=== PATIENT | female | born 1990 | race Caucasian/White ===

== ENCOUNTER 2018-09-27 05:30 | Inpatient (IN) | payer OTHER, SELFPAY ==
[2018-09-27 06:15] VITALS: BMI 31.3
[2018-09-27] MEDS ORDERED: Promethazine HCl 25 MG/ML VIAL IM PRN ×3 (08:05→14:13)
[2018-09-27] MEDS ORDERED: Carboprost 250 MCG/ML AMP IM PRN (08:05)
[2018-09-27] MEDS ORDERED: Misoprostol 200 MCG TAB PR PRN (08:05)
[2018-09-27] MEDS ORDERED: Methylergonovine 0.2 MG/ML VIAL IM PRN (08:05)
[2018-09-27] MEDS ORDERED: HYDROcodone/Acetaminophen 5/325 mg Tablet PO PRN ×3 (08:05→16:48)
[2018-09-27] MEDS ORDERED: Butorphanol Tartrate 1 MG/ML VIAL SLOW IVP PRN (08:05)
[2018-09-27] MEDS ORDERED: Lidocaine 1% (PF) 30 ML VIAL SC PRN (08:05)
[2018-09-27] MEDS ORDERED: Acetaminophen 500 MG TAB PO PRN (08:05)
[2018-09-27] MEDS ORDERED: Ibuprofen 800 MG TAB PO PRN (08:05)
[2018-09-27] MEDS ORDERED: Ondansetron PF 4 MG/2 ML Vial IVP PRN ×3 (08:05→14:13)
[2018-09-27] MEDS ORDERED: Meperidine HCl/PF 25 MG/ML VIAL IM/IV PRN (08:05)
[2018-09-27] MEDS ORDERED: NS / Oxytocin 40 units/1000ml 1,000 ML IV PRN (08:05)
[2018-09-27] MEDS ORDERED: NS w/ Oxytocin 10 units 500 ML IV SCH (08:15)
[2018-09-27 08:32] LABS: Hemoglobin 11.1 g/dL (12.0-16.0); Mean Corpuscular HGB CONC 33.6 g/dL (32.0-36.0); Mean Corpuscular Volume 77.4 fL (78.0-98.0); Mean Platelet Volume 9.2 fL (7.4-10.4); Platelet Count 139 thou/uL (130-400); RBC Distribution Width 13.3 % (11.5-14.5); Red Blood Cell (RBC) Count 4.28 mill/uL (4.20-5.40); White Blood Cell (WBC) Count 9.6 thou/uL (4.8-10.8)
[2018-09-27 09:01] LABS: HBSAg Index 0.34 S/CO (0-0.99); Hep B Surf Ag Non-Reactive S/CO (NonReactive); Syphilis Antibody Nonreactive (Nonreactive); Syphilis Antibody Index 0.02 S/CO (<1.00 Non-Reactive)
[2018-09-27] MEDS ORDERED: Fentanyl 4 mcg/Bup 0.1% Cadd 100 ML ONE (10:13)
[2018-09-27] MEDS ORDERED: Lactated Ringer's 500 ML IV PRN (10:46)
[2018-09-27] MEDS ORDERED: ePHEDrine/0.9% NaCl/PF SYRINGE 50 mg/10 ml SLOW IVP PRN (10:46)
[2018-09-27] MEDS ORDERED: Naloxone HCl 0.4 mg/ml Vial IVP PRN ×4 (10:46→14:15)
[2018-09-27] MEDS ORDERED: Eucerin (Mineral Oil/Petrolatum,White) 30 gm Jar TOP PRN ×2 (10:46→14:13)
[2018-09-27] MEDS ORDERED: Acetaminophen 325 MG TAB PO PRN (10:46)
[2018-09-27] MEDS ORDERED: diphenhydrAMINE 50 MG/ML VIAL IVP PRN ×2 (10:46→14:13)
[2018-09-27] MEDS ORDERED: Fentanyl 4 mcg/Bupivacaine 0.1% Cassette 100 ML EPIDURAL SCH (11:00)
[2018-09-27] MEDS ORDERED: Communication Order-Pharmacy FS SCH ×2 (11:00→14:15)
[2018-09-27] MEDS ORDERED: Labetalol HCl 100 MG/20 ML VIAL ONE (11:11)
[2018-09-27] MEDS ORDERED: PROPOFOL 200 MG/20 ML VIAL ONE (11:11)
[2018-09-27] MEDS ORDERED: PHENYLEPHRINE-NS 100 MCG/ML 10 ML SYRINGE ONE (11:11)
--- NOTE | 2018-09-27 12:08 | PDOC.EVN ---
Event Note - Event Note Event Note: AROM, clear fluid, 460/-2. FHT reactive. Moderate variability. CTX every 3-4 minutes. Pitocin on 10.
--- NOTE | 2018-09-27 12:10 | PDOC.LDHP ---
Labor and Delivery H&P Chief complaint: scheduled induction HPI: Here for post-dates IOL. No complaints. Some mild contractions this AM. Current gestational age (weeks): 41 Due date: 09/17/18 Dating criteria: last menstrual period Grav: 4 Para: 3 Current complications: none Abnormal US findings: No Current medications: pre- vitamins Previous surgical history: none Allergies/Adverse Reactions: Allergies Allergy/AdvReac Type Severity Reaction Status Date / Time No Known Drug Allergies Allergy Verified 09/27/18 06:11 Social history: none - Physical Exam Vital signs reviewed and normal: yes General: NAD, resting Heart: RRR Lungs: CTAB Abdomen: gravid Extremeties: no edema FHT: category 1, variability present - Vaginal Exam cm dilated: 2 Effacement: 50% Station: -2 - OB Labs Blood type: O RH: positive Antibody Screen: negative HIV: negative RPR: negative HEPSAg: negative 1 hour GCT: negative GBS: negative Urine drug screen: not done Rubella: immune - Assessment L&D Assessment: medically indicated induction (Post-dates) - Plan Plan: admit to L&D, labor augmentation if indicated, anesthesia consult for pain management
[2018-09-27] MEDS ORDERED: Oxytocin 10 UNITS/ML VIAL ONE (13:49)
[2018-09-27] MEDS ORDERED: Lidocaine 2% 10 ML INJ ONE (13:49)
[2018-09-27] MEDS ORDERED: MORPHINE 5 MG/10 ML PF VIAL ONE (13:50)
[2018-09-27 14:08] LABS: Actual Bicarbonate (HCO3a) 21.5 mEq/L (22-28); Base Excess (BEa) -11.3 mEq/L (-2.0 to +3.0)
[2018-09-27] MEDS ORDERED: Meperidine HCl/PF 25 MG/ML VIAL SLOW IVP PRN (14:13)
[2018-09-27] MEDS ORDERED: Ondansetron HCl/PF 4 MG/2 ML Vial IVP PRN (14:13)
[2018-09-27] MEDS ORDERED: L&D-Morphine 4 MG/ML VIAL SLOW IVP PRN (14:13)
[2018-09-27] MEDS ORDERED: Naloxone HCl 0.4 mg/ml Vial IV PRN (14:13)
[2018-09-27] MEDS ORDERED: Promethazine HCl 25 MG SUPP PR PRN (14:13)
[2018-09-27] MEDS ORDERED: Ketorolac Tromethamine 30 MG/ML VIAL IVP PRN (14:13)
[2018-09-27] MEDS ORDERED: HYDROmorphone 2 MG/ML VIAL SLOW IVP PRN (14:13)
[2018-09-27] MEDS ORDERED: Ketorolac Tromethamine 30 MG/ML VIAL IVP SCH (14:15)
--- NOTE | 2018-09-27 14:40 | RAD ---
KUB INDICATION: Incomplete operative count for emergency IMPRESSION: No definite retained radiopaque foreign body is evident within the abdominal cavity. Ther e is a buckle overlying the mid abdomen related to external artifact from the operative table as reported by the health care sanitary technician. The bowel gas pattern is nonspecific. Lung bases are clear. No acute osse ous abnormality is evident. There are surgical skin anastacio overlying the lower aspect of the abdomen likely related to a prior Pfannenstiel incision.
[2018-09-27] MEDS ORDERED: Azithromycin 500 MG VIAL ONE (14:58)
[2018-09-27] MEDS ORDERED: Ondansetron PF 4 MG/2 ML Vial ONE (15:27)
[2018-09-27] MEDS ORDERED: Ketorolac Tromethamine 30 MG/ML VIAL ONE (15:30)
--- NOTE | 2018-09-27 16:23 | PDOC.EVN ---
Event Note - Event Note Event Note: At the time of AROM at 1200 (noon) the vertex was palpated at the cervix, -2 station. At that time FHT were reassuring. I returned to my clinic for the afternoon. I received a phone call from her nurse, Indy, at 1325 stating that she felt a hand in advance of the vertex. I asked her to place the patient in knee-chest to see if the baby would spontaneously reduce the hand. During that phone call the FHT were reportedly reassuring. I was in my clinic at that time. I did intend to go evaluate the situation for myself shortly. At 1339, I received a phone call from L&D that she had a cord prolapse. At that time I ran from clinic to L&D and the patient was already in the OR. Dr Tatum was present and preparing the abdomen for C/S. We proceeded quickly with C/S under general anesthesia - please see his notes for the procedure details. Total time from discovery of the prolapse to delivery was 11 minutes. team was present for resuscitation, see their notes for details. Infant apgars were 1/6/7. Cord pH was 7.02. After surgery Dr. Tatum and I discussed the sequence of events with the patient's . The baby was stable in the nursery, not needing any support at the time I returned to my office. I will follow up on mom and baby later this afternoon as well.
[2018-09-27] MEDS ORDERED: Bisacodyl 10 MG SUPP PR PRN (16:48)
[2018-09-27] MEDS ORDERED: Lanolin Ointment 7 GM TUBE TOP PRN (16:48)
[2018-09-27] MEDS: Simethicone Chewable 80 MG TAB PO PRN (17:58)
[2018-09-27] MEDS: Docusate Calcium (SURFAK) 240 MG CAP PO SCH (21:25)
--- NOTE | 2018-09-27 21:33 | OP ---
DATE OF PROCEDURE: 09/27/2018 PROCEDURE PERFORMED: Primary low segment transverse section via Pfannenstiel incision, done stat. SURGEON: Sj Tatum MD [employer] SURGEON: Jose Drummond MD PREOPERATIVE DIAGNOSES: 1. Term IUP in labor 2. Prolapsed cord POSTOPERATIVE DIAGNOSES: 1&2 as above FINDINGS: 1. Viable male found in the transverse presentation with Apgars 1, 6, 6, 7, weight 7 pounds 13 ounces. 2. Normal uterus, tubes, and ovaries bilaterally. 3. Arterial cord pH of 7.03. 4. Extension of the left uterine angle. COMPLICATIONS: None. PROPHYLAXIS: 1 g Ancef given prior to incision. ESTIMATED BLOOD LOSS: 900 to a 1000 mL, QBL pending. BRIEF PATIENT DESCRIPTION: This patient is a 28-year-old, white, multiparous patient, who I was called to see emergently for prolapsed cord in the room. The patient was noted to have a profound bradycardia and the presenting part could not be palpated. The patient was rushed to the OR for stat section. TECHNIQUE IN DETAIL: After good general endotracheal anesthesia was achieved, the patient was prepped and draped in usual sterile fashion quickly with the patient in the supine position with leftward tilt. A transverse incision was made in the midline and was quickly carried down into the abdominal cavity. A transverse incision was made across the lower uterine segment and was extended bluntly using the fingers. Upon entry into the uterine cavity, there was an arm that presented. This was reduced and then the baby's head was manipulated to the uterine incision and delivered from the cephalic presentation. The baby was floppy and the cord was clamped and cut. The baby was taken to the awaiting team. Cord gases and cord blood were then obtained. The placenta was manually removed. The inside of the uterus was curetted with a dry lap to remove all remaining placental fragments. At this time, it could be seen that there was a 3-to 4-cm extension on the left side. This was repaired separately with a #1 chromic suture. The remainder of the uterine incision was closed using a running locking suture of 0 Monocryl. There was some persistent bleeding from the left uterine angle and this was fixed with an imbricating stitch. All sutures were placed inside the round ligament and distal from the ureter. Once the uterus was made hemostatic, it was replaced into the abdominal cavity and the pelvic gutters were cleared of all clots and debris. The fascia was closed using #1 PDS suture brought laterally to the midline in an alternating running locking fashion. The subcutaneous tissue was thoroughly irrigated and made dry using Bovie coagulation technique. Skin was closed with metal anastacio. Due to the stat nature of the procedure, an x-ray was performed, and there were no instruments seen. The patient was taken to the recovery room in good condition. Job ID: [id number] [facility]
[2018-09-27] MEDS ORDERED: Ibuprofen 800 MG TAB PO SCH (22:00)
[2018-09-28] MEDS ORDERED: Naloxone HCl 0.4 mg/ml Vial IV PRN ×3 (03:59)
[2018-09-28] MEDS ORDERED: Hydrocerin (Eucerin) Cream 120 gm Jar TOP PRN (03:59)
[2018-09-28] MEDS ORDERED: Promethazine HCl 25 MG/ML VIAL IM PRN (03:59)
[2018-09-28] MEDS ORDERED: Ondansetron PF 4 MG/2 ML Vial IVP PRN (03:59)
[2018-09-28] MEDS ORDERED: Promethazine HCl 25 MG SUPP PR PRN (03:59)
[2018-09-28] MEDS ORDERED: NO PO,IM,IV OR SC NARCOTICS FOR 12HR EXCEPT BY ANESTHESIA PO SCH (03:59)
[2018-09-28] MEDS ORDERED: diphenhydrAMINE 50 MG/ML VIAL IVP PRN (03:59)
[2018-09-28] MEDS: Ketorolac Tromethamine 30 MG/ML VIAL IVP PRN ×2 (04:13→13:07)
[2018-09-28 07:47] LABS: Hemoglobin 8.3 g/dL (12.0-16.0); Mean Corpuscular HGB CONC 32.9 g/dL (32.0-36.0); Mean Corpuscular Volume 79.1 fL (78.0-98.0); Mean Platelet Volume 8.4 fL (7.4-10.4); Platelet Count 134 thou/uL (130-400); RBC Distribution Width 13.4 % (11.5-14.5); White Blood Cell (WBC) Count 14.1 thou/uL (4.8-10.8)
[2018-09-28] MEDS: Docusate Calcium (SURFAK) 240 MG CAP PO SCH ×2 (09:29→21:44)
[2018-09-28] MEDS: Simethicone Chewable 80 MG TAB PO PRN ×2 (09:29→16:03)
--- NOTE | 2018-09-28 10:48 | PDOC.PP ---
Post Progress Note Post Day #: 1 Subjective: Did well overnight. Took a shower this AM and had syncope right after that. Feeling better now that back in the bed. Baby coming out of NICU to mom today. Hgb 11.1-->8.3. PO intake tolerated: yes Flatus: yes Ambulation: yes Vital Signs (12 hours) Temp Pulse Resp BP Pulse Ox 09/28/18 10:12 105 H 20 97/53 L 94 L 09/28/18 09:40 98.5 F 97 17 117/70 100 09/28/18 09:34 100 09/28/18 06:33 98.5 F 87 18 112/58 L 97 09/28/18 05:40 97 17 107/52 L 09/28/18 04:08 91 16 110/57 L 98 09/28/18 03:50 88 18 114/56 L 09/28/18 03:30 98.1 F 92 16 108/60 09/28/18 00:03 98.0 F 101 H 18 112/59 L Weight Weight 177 lb - Physical Examination General: NAD Cardiovascular: no m/r/g, RRR Respiratory: clear to auscultation bilaterally, non-labored breathing Abdominal: + bowel sounds, lochia, no distention, appropriately TTP Extremities: negative homans (B) Skin: CS incision dry & intact Result Diagrams: 09/28/18 07:33 Additional Labs: Post Labs Blood Type O POSITIVE 09/27/18 08:10 Hep Bs Antigen Non-Reactive S/CO (NonReactive) 09/27/18 08:10 (1) malpresentation Code(s): O32.9XX0 - MATERNAL CARE FOR MALPRESENTATION OF FETUS, UNSP, UNSP Status: Acute Qualifiers: malpresentation type: compound Fetus number: single or unspecified fetus Qualified Code(s): O32.6XX0 - Maternal care for compound presentation, not applicable or unspecified (2) delivery delivered Code(s): O82 - ENCOUNTER FOR DELIVERY WITHOUT INDICATION Status: Acute (3) Prolapsed cord Code(s): O69.0XX0 - LABOR AND DELIVERY COMPLICATED BY PROLAPSE OF CORD, UNSP Status: Acute Qualifiers: Fetus number: single or unspecified fetus Qualified Code(s): O69.0XX0 - Labor and delivery complicated by prolapse of cord, not applicable or unspecified - Assessment/Plan Syncope this AM, feeling better now, baby will come to mom today and can start . If continues to feel faint with ambulation then consider transfusion but H/H drop not too severe. Continue to work on PO and ambulation.
[2018-09-28] MEDS ORDERED: HYDROcodone/Acetaminophen 5/325 mg Tablet PO PRN (15:55)
[2018-09-28] MEDS: HYDROcodone/Acetaminophen 5/325 mg Tablet PO PRN ×2 (16:28→21:43)
[2018-09-28] MEDS ORDERED: Sodium Chloride 0.9% 10 ML ONE (21:38)
[2018-09-29] MEDS: Simethicone Chewable 80 MG TAB PO PRN ×3 (01:26→21:12)
[2018-09-29] MEDS: HYDROcodone/Acetaminophen 5/325 mg Tablet PO PRN ×2 (08:33→21:10)
[2018-09-29] MEDS: Docusate Calcium (SURFAK) 240 MG CAP PO SCH ×2 (08:34→21:12)
--- NOTE | 2018-09-29 10:30 | PDOC.PP ---
Post Progress Note Post Day #: 2 Subjective: Doing well, passing gas, pain improving, felt better than yesterday - more steady on her feet, tolerating PO. PO intake tolerated: yes Flatus: yes Ambulation: yes Vital Signs (12 hours) Temp Pulse Resp BP BP Pulse Ox 09/29/18 08:38 98.0 F 108 H 20 118/69 97 09/29/18 04:15 99.0 F 110 H 18 127/76 97 09/29/18 01:27 98.5 F 107 H 18 117/62 Weight Weight 177 lb - Physical Examination General: NAD Cardiovascular: no m/r/g, RRR Respiratory: clear to auscultation bilaterally, non-labored breathing Abdominal: + bowel sounds, lochia, no distention, appropriately TTP Skin: CS incision dry & intact Neurological: no gross focal deficits Psychiatric: A&Ox3 Result Diagrams: 09/28/18 07:33 Additional Labs: Post Labs Blood Type O POSITIVE 09/27/18 08:10 Hep Bs Antigen Non-Reactive S/CO (NonReactive) 09/27/18 08:10 (1) malpresentation Code(s): O32.9XX0 - MATERNAL CARE FOR MALPRESENTATION OF FETUS, UNSP, UNSP Status: Acute Qualifiers: malpresentation type: compound Fetus number: single or unspecified fetus Qualified Code(s): O32.6XX0 - Maternal care for compound presentation, not applicable or unspecified (2) delivery delivered Code(s): O82 - ENCOUNTER FOR DELIVERY WITHOUT INDICATION Status: Acute (3) Prolapsed cord Code(s): O69.0XX0 - LABOR AND DELIVERY COMPLICATED BY PROLAPSE OF CORD, UNSP Status: Acute Qualifiers: Fetus number: single or unspecified fetus Qualified Code(s): O69.0XX0 - Labor and delivery complicated by prolapse of cord, not applicable or unspecified - Assessment/Plan Routine Post-op care Ambulate longer distance today Shower again to make sure no pre-syncope Home in AM Baby doing well - in room with mom
[2018-09-29] MEDS: Ibuprofen 800 MG TAB PO SCH ×2 (13:12→21:11)
[2018-09-30] MEDS: HYDROcodone/Acetaminophen 5/325 mg Tablet PO PRN ×2 (05:09→12:24)
[2018-09-30] MEDS: Ibuprofen 800 MG TAB PO SCH (05:10)
[2018-09-30] MEDS: Docusate Calcium (SURFAK) 240 MG CAP PO SCH (10:39)
--- NOTE | 2018-09-30 10:54 | PDOC.PP ---
Post Progress Note Post Day #: 3 Subjective: Doing well. Ambulating. Showered without incident yesterday. Ready for D/C. PO intake tolerated: yes Flatus: yes Ambulation: yes Weight Weight 177 lb - Physical Examination General: NAD Cardiovascular: no m/r/g, RRR Respiratory: clear to auscultation bilaterally, non-labored breathing Abdominal: + bowel sounds, lochia, no distention, appropriately TTP Skin: CS incision dry & intact Result Diagrams: 09/28/18 07:33 Additional Labs: Post Labs Blood Type O POSITIVE 09/27/18 08:10 Hep Bs Antigen Non-Reactive S/CO (NonReactive) 09/27/18 08:10 (1) malpresentation Code(s): O32.9XX0 - MATERNAL CARE FOR MALPRESENTATION OF FETUS, UNSP, UNSP Status: Acute Qualifiers: malpresentation type: compound Fetus number: single or unspecified fetus Qualified Code(s): O32.6XX0 - Maternal care for compound presentation, not applicable or unspecified (2) delivery delivered Code(s): O82 - ENCOUNTER FOR DELIVERY WITHOUT INDICATION Status: Acute (3) Prolapsed cord Code(s): O69.0XX0 - LABOR AND DELIVERY COMPLICATED BY PROLAPSE OF CORD, UNSP Status: Acute Qualifiers: Fetus number: single or unspecified fetus Qualified Code(s): O69.0XX0 - Labor and delivery complicated by prolapse of cord, not applicable or unspecified - Assessment/Plan Routine post op care D/C anastacio D/c home F/U in 2 weeks
[2018-09-30 16:17] VITALS: BP 120/73; TEMP 98.6
== END 2018-09-30 15:25 | disposition home or self-care (01) | DRG 788 ==
LOC: L&D 05:50 → 3SW 17:40 → 3SE 17:52
PROVIDERS: ADMIT Family Medicine; ATTEND Family Medicine
PROC: 10907ZC Drainage of Amniotic Fluid, Therapeutic from Products of Conception, Via Natural or Artificial Opening (ICD-10-PCS; principal; 2018-09-27)
PROC: 10D00Z1 Extraction of Products of Conception, Low, Open Approach (ICD-10-PCS; 2018-09-27)
PROC: 3E0P7VZ Introduction of Hormone into Female Reproductive, Via Natural or Artificial Opening (ICD-10-PCS; 2018-09-27)
PROC: 3E033VJ Introduction of Other Hormone into Peripheral Vein, Percutaneous Approach (ICD-10-PCS; 2018-09-27)
DX: O48.0 Post-term pregnancy (principal); Z3A.41 41 weeks gestation of pregnancy; O69.0XX0 Labor and delivery complicated by prolapse of cord, not applicable or unspecified; O32.6XX0 Maternal care for compound presentation, not applicable or unspecified; O61.0 Failed medical induction of labor; Z37.0 Single live birth
CPT/HCPCS: 36415; 51702; 74018; 82805; 85027; 86780; 86850; 86900; 86901; 87340; 88307; J0456; J0690; J1885; J2001; J2270; J2405; J2590; J2704